=== PATIENT | female | born 1980 | race Caucasian/White ===

== ENCOUNTER 2017-08-12 13:24 | Emergency (ER) | payer BC ==
[2017-08-12] MEDS ORDERED: LORAZEPAM 2 MG/ML VIAL IV ONE ×2 (14:31→14:51)
[2017-08-12] MEDS ORDERED: ASPIRIN 81 MG CHEWABLE TABLET PO ONE (14:39)
[2017-08-12 14:50] LABS: BASO % 0.4 % (0-6); EOS % 0.6 % (0-6); GRAN % 78.6 % (47-80); HEMATOCRIT 41.3 % (35.0-47.0); HEMOGLOBIN 13.6 gm/dl (11.6-16.0); LYMPH % 14.1 % (16-45); MEAN CELL VOLUME 98.3 fl (81-97); MEAN CORPUSCULAR HEMOGLOBIN 32.4 pg (27-33); MEAN CORPUSCULAR HGB CONC 32.9 g/dl (32-36); MEAN PLATELET VOLUME 8.1 fl (7.4-10.4); MONO % 6.3 % (0-9); PLATELET COUNT 362 K/uL (130-400); RED CELL DISTRIBUTION WIDTH 13.9 % (11.5-14.5); WHITE BLOOD COUNT W/O DIFF 11.5 K/uL (4.2-12.2)
[2017-08-12] MEDS ORDERED: METOPROLOL TART 5 MG/5 ML VIAL IV ONE (14:51)
[2017-08-12 14:59] LABS: BLOOD UREA NITROGEN 15 mg/dL (6-20); CREATININE 0.8 mg/dL (0.5-0.9); EST GLOMERULAR FILTRATION RATE > 60 mL/min
[2017-08-12] MEDS ORDERED: 0.9 % SODIUM CHLORIDE 1000ML 1,000 ML IV SCH (15:00)
[2017-08-12 15:01] LABS: GLUCOSE,RANDOM 82 mg/dL (74-109)
[2017-08-12 15:14] LABS: THYROID STIMULATING HORMONE 2.71 uIU/mL (0.270-4.20)
[2017-08-12] MEDS ORDERED: ADENOSINE 6 MG/2 ML VIAL IVP ONE (15:42)
[2017-08-12] MEDS ORDERED: ADENOSINE 12 MG/4 ML VIAL IVP ONE (15:48)
[2017-08-12] MEDS ORDERED: ONDANSETRON HCL IV 4 MG/2 ML VIAL IVP ONE (15:52)
--- NOTE | 2017-08-12 16:01 | Emergency Department Record ---
Anxiety - General Chief Complaint: Anxiety Stated Complaint: ANXIETY ATTACK Time Seen by Provider: 08/12/17 14:27 Source: Patient, RN notes reviewed Mode of Arrival: Ambulatory - History of Present Illness Initial Comments: patient stated at 10:00 am nausea and vomiting times three and a racing heart and she felt like she was having an anxiety attack. Patient complaining of chest pain and she has had tachycardia in the past and multiple anxiety attacks. MD Complaint: Heart racing Onset/Timin -: Hour(s) Symptoms: Chest pain, Dyspnea Place: Home Previous History of Same: Yes Severity: Moderate Quality: Constant Associated symptoms: Chest pain, Fever/chills, Nausea/vomiting - Related Data Home Medications: Home Medications Medication Instructions Recorded Confirmed Last Taken Bupropion HCl [Bupropion Xl] 150 mg PO QAM 08/12/17 08/12/17 08/12/17 Hydroxyzine Pamoate 25 mg PO BID 08/12/17 08/12/17 08/12/17 Sertraline HCl [Zoloft] 100 mg PO DAILY 08/12/17 08/12/17 08/12/17 Trazodone HCl 50 mg PO QHS 08/12/17 08/12/17 08/12/17 Allergies/Adverse Reactions: Allergies Allergy/AdvReac Type Severity Reaction Status Date / Time Sulfa (Sulfonamide Allergy SWELLING Verified 08/12/17 14:44 Antibiotics) (GENERAL) Travel Screening - Travel/Exposure Within Last 30 Days Have you traveled within the last 30 days?: No - Travel/Exposure Within Last Year Have you traveled outside the [place] in the last year?: No - Additonal Travel Details Have you been exposed to anyone with a communicable illness?: No - Travel Symptoms Symptom Screening: None Review of Systems Reviewed: No additional complaints except as noted below Constitutional: Reports: As per HPI. Denies: Chills, Fever, Malaise, Night sweats, Weakness, Weight change Eyes: Reports: As per HPI. Denies: Eye discharge, Eye pain, Photophobia, Vision change ENT: Reports: As per HPI. Denies: Congestion, Dental pain, Ear pain, Epistaxis , Hearing loss, Throat pain Respiratory: Reports: As per HPI. Denies: Cough, Dyspnea, Hemoptysis, Stridor, Wheezes Cardiovascular: Reports: As per HPI. Denies: Arrhythmia, Chest pain, Dyspnea on exertion, Edema, Murmurs, Orthopnea, Palpitations, Paroxysmal nocturnal dyspnea, Rheumatic Fever, Syncope Endocrine: Reports: As per HPI. Denies: Fatigue, Heat or cold intolerance, Polydipsia, Polyuria Gastrointestinal: Reports: As per HPI. Denies: Abdominal pain, Constipation, Diarrhea, Hematemesis, Hematochezia, Melena, Nausea, Vomiting Genitourinary: Reports: As per HPI. Denies: Abnormal menses, Discharge, Dyspareunia, Dysuria, Frequency, Hematuria, Incontinence, Retention, Urgency Musculoskeletal: Reports: As per HPI. Denies: Arthralgia, Back pain, Gout, Joint swelling, Myalgia, Neck pain Skin: Reports: As per HPI. Denies: Bruising, Change in color, Change in hair/ nails, Lesions, Pruritus, Rash Neurological: Reports: As per HPI. Denies: Abnormal gait, Confusion, Headache, Numbness, Paresthesias, Seizure, Tingling, Tremors, Vertigo, Weakness Psychiatric: Reports: As per HPI. Denies: Anxiety, Auditory hallucinations, Depression, Homicidal thoughts, Suicidal thoughts, Visual hallucinations Hematological/Lymphatic: Reports: As per HPI. Denies: Anemia, Blood Clots, Easy bleeding, Easy bruising, Swollen glands Past Medical History - SOCIAL HISTORY Smoking Status: Never smoker Alcohol Use: None Drug Use: None - RESPIRATORY Hx Respiratory Disorders: No - CARDIOVASCULAR Hx Cardio Disorders: No - NEURO Hx Neuro Disorders: No - GI Hx GI Disorders: Yes Hx Reflux: Yes - Hx Genitourinary Disorders: No - ENDOCRINE Hx Endocrine Disorders: No - MUSCULOSKELETAL Hx Musculoskeletal Disorders: No - PSYCH Hx Psych Problems: Yes Hx Anxiety: Yes Family Medical History Any Significant Family History?: No Physical Exam - General General Appearance: Alert, Oriented x3, Cooperative, Moderate distress - Head Head exam: Normal inspection - Eye Eye exam: Normal appearance, PERRL Pupils: Normal accommodation - ENT ENT exam: Normal exam, Mucous membranes moist, Normal external ear exam, Normal orophraynx, TM's normal bilaterally Ear exam: Normal external inspection. negative: External canal tenderness Nasal Exam: Normal inspection. negative: Discharge, Sinus tenderness Mouth exam: Normal external inspection, Tongue normal Teeth exam: Normal inspection. negative: Dental caries Throat exam: Normal inspection. negative: Tonsillar erythema, Tonsillar exudate - Neck Neck exam: Normal inspection, Full ROM. negative: Tenderness - Respiratory Respiratory exam: Normal lung sounds bilaterally. negative: Respiratory distress - Cardiovascular Cardiovascular Exam: Regular rate, Normal rhythm, Normal heart sounds - GI/Abdominal GI/Abdominal exam: Soft, Normal bowel sounds. negative: Tenderness - Rectal Rectal exam: Deferred - exam: Deferred - Extremities Extremities exam: Normal inspection, Full ROM, Normal capillary refill. negative: Tenderness - Back Back exam: Reports: Normal inspection, Full ROM. Denies: Muscle spasm, Rash noted, Tenderness - Neurological Neurological exam: Alert, Normal gait, Oriented X3, Reflexes normal - Psychiatric Psychiatric exam: Normal affect, Normal mood - Skin Skin exam: Dry, Intact, Normal color, Warm Course Vital Signs 08/12/17 08/12/17 08/12/17 14:09 14:43 14:45 Pulse Rate [ 209 H 208 H [employer] ] Respiratory 24 Rate Blood Pressure 98/78 Blood Pressure 132/112 97/80 [Left Arm] Pulse Ox 100 08/12/17 08/12/17 08/12/17 15:00 15:02 15:11 Pulse Rate [ 208 H 205 H 186 H [employer] In[employer] ] Respiratory Rate Blood Pressure Blood Pressure 87/43 92/71 92/77 [Left Arm] Pulse Ox 08/12/17 08/12/17 15:15 15:18 Pulse Rate [ 183 H 182 H [employer] In[employer] ] Respiratory Rate Blood Pressure Blood Pressure 86/35 86/70 [Left Arm] Pulse Ox - Reevaluation(s) Reevaluation #1: discussed case with Dr. Bryant at [facility] and will transfer to [facility] 08/12/17 16:39 Medical Decision Making - Lab Data Result diagrams: 08/12/17 14:39 08/12/17 14:41 Lab Results 08/12/17 08/12/17 08/12/17 Range/Units 14:39 14:41 14:41 WBC 11.5 (4.2-12.2) K/uL RBC 4.20 (3.80-5.40) M/uL Hgb 13.6 (11.6-16.0) gm/dl Hct 41.3 (35.0-47.0) % MCV 98.3 H (81-97) fl MCH 32.4 (27-33) pg MCHC 32.9 (32-36) g/dl RDW 13.9 (11.5-14.5) % Plt Count 362 (130-400) K/uL MPV 8.1 (7.4-10.4) fl Gran % 78.6 (47-80) % Lymphocytes % 14.1 L (16-45) % Monocytes % 6.3 (0-9) % Eosinophils % 0.6 (0-6) % Basophils % 0.4 (0-6) % APTT 28.90 (24.5-39.1) SECONDS Sodium 137 (136-145) mmol/L Potassium 4.1 (3.4-4.5) mmol/L Chloride 94 L (98-107) mmol/L Carbon Dioxide 17.0 L (22-29) mmol/L Anion Gap 26.0 H (7-16) BUN 15 (6-20) mg/dL Creatinine 0.8 (0.5-0.9) mg/dL Estimated GFR > 60 mL/min Random Glucose 82 (74-109) mg/dL Calcium 10.0 (8.6-10.0) mg/dL Troponin T 0.094 H (0-0.010) ng/mL TSH 2.71 (0.270-4.20) uIU/mL Disposition Clinical Impression: SVT (supraventricular tachycardia), Elevated troponin level Disposition: Acute Care Hospital Transfer Condition: (1) Good Forms: Patient Portal Access Time of Disposition: 16:41 Quality - Quality Measures Quality Measures: N/A - Blood Pressure Screening Does Patient Have Any of the Following: No Blood Pressure Classification: Normal BP Reading Systolic Measurement: 98 Diastolic Measurement: 78 Screening for High Blood Pressure: < Normal BP, F/U Not Required > [G8783] Pre-Hypertensive Follow-up Interventions: Referral to alternative/primary care provider.
[2017-08-12 17:35] LABS: BARBITURATE SCREEN URINE NOT DETECTED; METHADONE SCREEN URINE NOT DETECTED; TRICYCLIC ANTIDEPRESSANT SCRN NOT DETECTED
[2017-08-12 17:36] LABS: AMPHETAMINE SCREEN URINE NOT DETECTED; BENZODIAZEPINE SCREEN URINE DETECTED; COCAINE SCREEN URINE NOT DETECTED; METHAMPHETAMINE SCREEN NOT DETECTED; OPIATE SCREEN URINE NOT DETECTED; OXYCODONE SCREEN URINE NOT DETECTED; PHENCYCLIDINE SCREEN URINE NOT DETECTED; PROPOXYPHENE SCREEN URINE NOT DETECTED; THC SCREEN URINE DETECTED
--- NOTE | 2017-08-13 20:41 | RADIOLOGY REPORT ---
EXAM: CHEST 2 VIEWS HISTORY: CHEST PAIN. TECHNIQUE: PA and lateral views. COMPARISON: None. FINDINGS: Heart size is normal. No definite acute infiltrate seen. No pleural effusion or pneumothorax evident. IMPRESSION: THE CHEST APPEARS NEGATIVE. JOB NUMBER: [id number] MTDD
== END 2017-08-12 17:31 | disposition short-term general hospital (02) ==
LOC: ER 13:24
DX: I47.1 Supraventricular tachycardia (principal); R79.89 Other specified abnormal findings of blood chemistry; R11.2 Nausea with vomiting, unspecified; R06.00 Dyspnea, unspecified
CPT/HCPCS: 99285 ×2; 96374; 96375; 96361; 85025; 85730; 82553; 80048; 84443; 80305; 84484; 71020; 93005; 93010; J0150; J0153; J2405; J2060; J7030

== ENCOUNTER 2019-10-03 20:05 | Emergency (ER) | payer BC ==
[2019-10-03] MEDS ORDERED: TOPICAL LIDOCAINE W/ EPI 5 ML TOP ONE (20:14)
[2019-10-03] MEDS ORDERED: Diph,Pert(Acell),Tet Vac 0.5 ML SYR IM ONE (20:17)
--- NOTE | 2019-10-03 20:20 | Emergency Department Record ---
History of Present Illness - General Chief Complaint: Laceration(s) Stated Complaint: LACERATION ON RT RING FINGER Time Seen by Provider: 10/03/19 20:06 Source: Patient Mode of Arrival: Ambulatory Limitations: No limitations - History of Present Illness Initial Commments: 39 yo female presents to ED for evaluation following laceration to the right ring finger while opening a can at home approximately 1 hour ago. Patient reports that she applied (3) band-aids to stop her bleeding. Patient reports numbness to the distal aspect of the digit, denies loss or flexion/extension on examination. Patient denies use of anticoagulation medications, and is not aware of her previous tetanus update. Onset/Timin -: Hour(s) Extremity Location: Right: Hand Place: Home Context: Accidental Associated Symptoms: None Treatments Prior to Arrival: Bandage - [place] Coma Scale Eye Response: (4) Open spontaneously Motor Response: (6) Obeys commands Verbal Response: (5) Oriented [place] Total: 15 - Related Data Hx Tetanus Toxoid Vaccination: Yes Patient Tetanus UTD (within 5 yrs): No Home Medications Medication Instructions Recorded Confirmed Last Taken Alprazolam [Xanax] 0.5 mg PO DAILY PRN 10/03/19 10/03/19 Unknown Lamotrigine [Lamictal] 1 tab PO DAILY 10/03/19 10/03/19 10/03/19 Methylphenidate HCl [Concerta] 36 mg PO DAILY 10/03/19 10/03/19 10/03/19 Methylphenidate HCl [Ritalin] 10 mg PO BID PRN 10/03/19 10/03/19 10/03/19 Omeprazole 20 mg PO DAILY 10/03/19 10/03/19 10/03/19 Allergies Allergy/AdvReac Type Severity Reaction Status Date / Time Sulfa (Sulfonamide Allergy SWELLING Verified 08/12/17 14:44 Antibiotics) (GENERAL) Review of Systems Constitutional: Denies: Chills, Fever, Malaise, Night sweats Eyes: Denies: Eye discharge, Eye pain ENT: Denies: Congestion, Ear pain, Epistaxis Respiratory: Denies: Cough, Dyspnea Cardiovascular: Denies: Chest pain, Dyspnea on exertion Endocrine: Denies: Fatigue, Heat or cold intolerance, Polydipsia Gastrointestinal: Denies: Abdominal pain, Nausea, Vomiting Genitourinary: Denies: Incontinence, Retention Musculoskeletal: Denies: Arthralgia, Back pain, Gout, Joint swelling Skin: Reports: Other (Laceration to the right ring finger). Denies: Bruising, Change in color, Change in hair/nails Neurological: Denies: Abnormal gait, Confusion, Headache, Seizure Psychiatric: Denies: Anxiety Hematological/Lymphatic: Denies: Anemia, Blood Clots Past Medical History - SOCIAL HISTORY Smoking Status: Never smoker Drug Use: None - RESPIRATORY Hx Respiratory Disorders: No - CARDIOVASCULAR Hx Cardio Disorders: No - NEURO Hx Neuro Disorders: No - GI Hx GI Disorders: Yes Hx Reflux: Yes - Hx Genitourinary Disorders: No - ENDOCRINE Hx Endocrine Disorders: No - MUSCULOSKELETAL Hx Musculoskeletal Disorders: No - PSYCH Hx Psych Problems: Yes Hx Anxiety: Yes Physical Exam - General General Appearance: Alert, Oriented x3, Cooperative, No acute distress Limitations: No limitations - Head Head exam: Atraumatic, Normocephalic, Normal inspection Head exam detail: negative: Abrasion, Contusion, Mustafa's sign, General tenderness, Hematoma, Laceration - Eye Eye exam: Normal appearance. negative: Conjunctival injection, Periorbital swelling, Periorbital tenderness, Scleral icterus - ENT Ear exam: negative: Auricular hematoma, Auricular trauma Nasal Exam: negative: Active bleeding, Discharge, Dried blood, Foreign body Mouth exam: negative: Drooling, Laceration, Muffled voice, Tongue elevation - Neck Neck exam: Normal inspection. negative: Meningismus, Tenderness - Respiratory Respiratory exam: Normal lung sounds bilaterally. negative: Rales, Respiratory distress, Rhonchi, Stridor - Cardiovascular Cardiovascular Exam: Normal rhythm, Normal heart sounds, Tachycardia - GI/Abdominal GI/Abdominal exam: Soft. negative: Rebound, Rigid, Tenderness - Rectal Rectal exam: Deferred - exam: Deferred - Extremities Extremities exam: Tenderness, Other (1.0 cm laceration overlying the palmar aspect of the right ring finger at the DIP, no tendon deficits are present on examination). negative: Calf tenderness, Pedal edema - Back Back exam: Denies: CVA tenderness (R), CVA tenderness (L) - Neurological Neurological exam: Alert, Normal gait, Oriented X3 - Psychiatric Psychiatric exam: Normal affect, Normal mood - Skin Skin exam: Normal color. negative: Abrasion Type of lesion: negative: abrasion Course Vital Signs 10/03/19 20:10 Temperature 98.7 F Pulse Rate [ 127 H Pulse Ox Probe] Respiratory 20 Rate Blood Pressure 140/107 [Left Arm] Pulse Ox 98 - Reevaluation(s) Reevaluation #1: 10/03/19 20:33 Procedure Note: 1.0 cm laceration to the flexor surface of the right ring finger, bleeding controlled. Wound was cleaned and prepped in sterile fashion, no residual FB identified on examination. Wound was anesthetized with TLE solution with good anesthesia, and the laceration was repaired with Dermabond solution. Patient tolerated the procedure well without complications. Patient's refused a tetanus update. Splint was applied to improve the longevity of the dermabond solution. Patient was given wound care instructions and signs/symptoms to return to the ED for as well including: increased swelling, pain, redness, or discharge from the wound. Disposition Disposition: Discharge Clinical Impression: Finger laceration Qualifiers: Encounter type: initial encounter Finger: ring finger Damage to nail status: without damage Foreign body presence: without foreign body Laterality: right Qualified Code(s): S61.214A - Laceration without foreign body of right ring finger without damage to nail, initial encounter Disposition: Home, Self-Care Condition: (2) Stable Instructions: Skin Adhesive Care (ED) Additional Instructions: Return to ED if your symptoms worsen or if you have any concerns. Follow-up with your family doctor in 3-5 days as directed. Forms: Patient Portal Access Time of Disposition: 20:21 Quality - Quality Measures Quality Measures: N/A - Blood Pressure Screening Does Patient Have Any of the Following: No Blood Pressure Classification: Hypertensive Reading Systolic Measurement: 140 Diastolic Measurement: 107 Screening for High Blood Pressure: < First Hypertensive BP, F/U Documented > [G8950] First Hypertensive Follow-up Interventions: Referral to alternative/primary care provider.
== END 2019-10-03 20:55 | disposition home or self-care (01) ==
LOC: ER 20:05
DX: S61.214A Laceration without foreign body of right ring finger without damage to nail, initial encounter (principal); W26.8XXA Contact with other sharp object(s), not elsewhere classified, initial encounter; Y92.009 Unspecified place in unspecified non-institutional (private) residence as the place of occurrence of the external cause
CPT/HCPCS: 96372; 99283